=== PATIENT | male | born 1955 | race Caucasian/White ===

== ENCOUNTER 2020-03-09 09:35 | Outpatient (REF) | payer BC, SELFPAY ==
[2020-03-09 10:24] LABS: Estimated Average Glucose 126 mg/dL
[2020-03-10 08:38] LABS: Lyme Abs Screen <0.90 index
== END 2020-03-09 09:36 | disposition home or self-care (01) ==
LOC: HO.LAB 09:35
PROVIDERS: PCP Internal Medicine; Visit Provider Psychiatry & Neurology Neurology
DX: M79.2 Neuralgia and neuritis, unspecified (principal); E11.9 Type 2 diabetes mellitus without complications
CPT/HCPCS: 83036; 86618

== ENCOUNTER 2023-07-10 16:32 | Outpatient (REF) | payer BC, SELFPAY ==
[2023-07-10 17:56] LABS: Vitamin B12 522 pg/mL (200-900)
== END 2023-07-10 16:33 | disposition home or self-care (01) ==
LOC: HO.LAB 16:32
PROVIDERS: PCP Internal Medicine; Visit Provider Psychiatry & Neurology Neurology
DX: G31.84 Mild cognitive impairment of uncertain or unknown etiology (principal)
CPT/HCPCS: 36415; 82607

== ENCOUNTER 2023-08-09 18:12 | Outpatient (REF) | payer BC, SELFPAY ==
--- NOTE | ~2023-08-09 | MR_ITS ---
EXAMINATION: MR BRAIN WITHOUT CONTRAST CLINICAL INFORMATION: Mild cognitive impairment. COMPARISON: None available. TECHNIQUE: MRI of the brain was obtained using routine sequences without contrast. FINDINGS: No focal restricted diffusion is demonstrated to suggest acute or subacute cerebral ischemia. No evidence of acute or chronic hemorrhagic products on heme-sensitive imaging. Scattered periventricular and deep white matter T2 FLAIR hyperintensities consistent with mild underlying microangiopathy. Proportional prominence of the ventricles and sulcal spaces without evidence of obstructive hydrocephalus. No abnormal mass effect. No midline shift. Normal appearance of the pituitary gland. Normal positioning of the cerebellar tonsils. Normal arterial and venous vascular flow voids are present. Normal, homogeneous marrow signal. 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 Mild mucosal thickening of the paranasal sinuses. No signal abnormalities within the mastoids. MR/MR head/brain wo con IMPRESSION: 1. No acute intracranial abnormalities. 2. 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
== END 2023-08-09 18:13 | disposition home or self-care (01) ==
LOC: HO.MRI 18:12
PROVIDERS: PCP Internal Medicine; Visit Provider Psychiatry & Neurology Neurology
DX: G31.84 Mild cognitive impairment of uncertain or unknown etiology (principal)
CPT/HCPCS: 70551